=== PATIENT | female | born 2000 | race Caucasian/White ===

== ENCOUNTER → 2022-06-05 08:32 | Outpatient (BNVA) | payer OTHER, SELFPAY | PROVIDERS: PCP Pediatrics; Visit Provider Internal Medicine | DX: S21.152A Open bite of left front wall of thorax without penetration into thoracic cavity, initial encounter (principal); S51.851A Open bite of right forearm, initial encounter; W50.3XXA Accidental bite by another person, initial encounter; Z23 Encounter for immunization | CPT/HCPCS: 90715; 99203 ==

== ENCOUNTER → 2022-07-10 11:40 | Outpatient (BNVA) | payer OTHER, SELFPAY | PROVIDERS: PCP Pediatrics; Visit Provider Internal Medicine | DX: S50.312A Abrasion of left elbow, initial encounter (principal); W50.3XXA Accidental bite by another person, initial encounter; L03.114 Cellulitis of left upper limb | CPT/HCPCS: 99203 ==

== ENCOUNTER → 2022-07-16 13:06 | Outpatient (BNVA) | payer OTHER, SELFPAY | PROVIDERS: PCP Pediatrics; Visit Provider Physician Assistant | DX: S50.312D Abrasion of left elbow, subsequent encounter (principal); W50.3XXD Accidental bite by another person, subsequent encounter; L03.114 Cellulitis of left upper limb | CPT/HCPCS: 99213 ==